=== PATIENT | female | born 1990 | race Caucasian/White ===

== ENCOUNTER 2018-11-21 08:04 | Inpatient (IN) | payer OTHER ==
[~2018-11-21] VITALS: Ht 160 cm; Wt 69.9 kg
--- OUTSIDE RECORDS SUMMARY | 2018-11-21 08:09 | XMS REPORT ---
Author Author CHANDU HAIDER Organization [employer] Address Unknown Phone Unavailable Care Team Providers Care Senior Quality Control Inspector Name Role Phone CHANDU HAIDER CP Unavailable Allergies, Adverse Reactions, Alerts Substance Reaction Event Type N.K.D.A. Info Not Available Non Drug Allergy Problems Problem Type Condition Code Onset Dates Condition Status Problem Overactive bladder 596.51 Active Assessment Exam Gynecological V72.31 Active Problem Hypertension NOS complicating , antepartum 642.93 Active Assessment TEST NEGATIVE V72.41 Active Medications Medication Code System Code Instructions Start Date End Date Status Dosage Vitamin for conception [facility] [address] Multivitamins with Folic Acid 1 mg orally once a day 1 tab(s) Procedures Procedure Coding System Code Date Beta HCG Urine test CPT-4 32109 September 29, 2014 Prev Med, estab pt, 18-39 yr CPT-4 21780 September 29, 2014 Vital Signs Date/Time: September 29, 2014 BMI 23.38 Index Weight 132 lbs Height 63 in Pain Scale 0/10 0-10 Blood Pressure Diastolic 78 mm Hg Blood Pressure Systolic 132 mm Hg Results Name Result Date Reference Range Unit Abnormality Flag BETA HCG TEST ----URINE TEST neg [id number] ----Internal QC met [id number] ----Urine color yellow [id number] Summary Purpose [employer] Submission
--- OUTSIDE RECORDS SUMMARY | 2018-11-21 08:09 | XMS REPORT | Continuity of Care Document ---
Author Organization Unknown Address Unknown Allergies There is no data. Medications There is no data. Problems There is no data. Procedures There is no data. Results There is no data. Encounters ACCT No. Visit Date/Time Discharge Status Pt. Type Provider Facility Loc./Unit Complaint [id number] 11/25/2013 16:12:22 11/29/2013 10:40:00 DIS Inpatient HAIDER, [facility] [id number] 11/23/2013 23:16:24 11/24/2013 00:30:00 [facility] [place] [id number] 11/11/2013 16:53:28 11/11/2013 23:59:00 DIS [place] [facility] [place] [id number] 09/12/2013 19:21:34 09/12/2013 23:59:00 [facility] [place]
[2018-11-21 08:15] VITALS: BP 137/92
[2018-11-21 08:26] LABS: BILIRUBIN,URINE NEGATIVE (NEGATIVE); CLARITY,URINE VERY CLOUDY; COLOR,URINE YELLOW; GLUCOSE, URINE (UA) NEGATIVE (NEGATIVE); KETONES,URINE 2+ (NEGATIVE); LEUKOCYTE ESTERASE ,URINE 3+ (NEGATIVE); NITRITE,URINE POSITIVE (NEGATIVE); PH,URINE 6 (5-9); PROTEIN,URINE 3+ (NEGATIVE); UROBILINOGEN,URINE NORMAL (NORMAL)
[2018-11-21] MEDS ORDERED: LACTATED RINGERS 1,000 ML IV ONE (08:34)
[2018-11-21 08:38] LABS: BACTERIA,URINE MODERATE /HPF; RBC,URINE 25-50 /HPF; WBC,URINE >100 /HPF
[2018-11-21] MEDS ORDERED: fentaNYL INJECTION 100 MCG/2 ML AMP IVP ONE (08:45)
[2018-11-21] MEDS ORDERED: ONDANSETRON 4 MG/2 ML (SDV) Z0FRAN IVP ONE (08:45)
[2018-11-21] MEDS ORDERED: cefTRIAXone FOR IV USE 1,000 MG in WATER (STERILE) FOR INJECTION 10 ML IV ONE (08:45)
[2018-11-21] MEDS ORDERED: IRON18TA PO (08:51)
[2018-11-21 08:52] LABS: HEMATOCRIT 34 % (35-52); HEMOGLOBIN 11.1 G/DL (11.5-16.0); MEAN CORPUSCULAR HEMOGLOBIN 19 PG (25-34); MEAN CORPUSCULAR HGB CONC 33 G/DL (32-36); MEAN CORPUSCULAR VOLUME 60 FL (80-99); PLATELET COUNT 198 10^3/uL (130-400); RED CELL DISTRIBUTION WIDTH 18.2 % (10.0-14.5); WHITE BLOOD COUNT 12.8 10^3/uL (4.3-11.0)
[2018-11-21 08:53] LABS: BASOPHILS % (AUTO) 0 % (0-10); EOSINOPHILS % (AUTO) 0 % (0-10); LYMPHOCYTES % (AUTO) 8 % (12-44); MEAN PLATELET VOLUME 10.8 FL (7.4-10.4); MONOCYTES # (AUTO) 1.2 X 10^3 (0.0-1.0); MONOCYTES % (AUTO) 10 % (0-12); NEUTROPHILS # (AUTO) 10.5 X 10^3 (1.8-7.8); NEUTROPHILS % (AUTO) 82 % (42-75)
[2018-11-21 09:02] LABS: INR 1.2 (0.8-1.4)
[2018-11-21 09:14] LABS: ALANINE AMINOTRANSFERASE 13 U/L (0-55); ALBUMIN 4.4 GM/DL (3.2-4.5); ALKALINE PHOSPHATASE 44 U/L (40-136); BILIRUBIN,TOTAL 1.2 MG/DL (0.1-1.0); BUN/CREATININE RATIO 8; CALCIUM 9.2 MG/DL (8.5-10.1); CARBON DIOXIDE 22 MMOL/L (21-32); CHLORIDE 106 MMOL/L (98-107); CREATININE SERUM 0.77 MG/DL (0.60-1.30); GFR ESTIMATED > 60; GLUCOSE 95 MG/DL (70-105); LIPASE 12 U/L (8-78); POTASSIUM 3.5 MMOL/L (3.6-5.0); SODIUM 139 MMOL/L (135-145); TOTAL PROTEIN 6.9 GM/DL (6.4-8.2)
[2018-11-21 09:32] LABS: LYMPHOCYTES % (MANUAL) 7 %; MONOCYTES % (MANUAL) 8 %; NEUTROPHILS % (MANUAL) 85 %; RBC MORPH NORMAL
--- NOTE | 2018-11-21 09:36 | Diagnostic Imaging Report ---
INDICATION: Back pain. Abdominal pain. TECHNIQUE: Single frontal view of the chest COMPARISON: None FINDINGS: The lung volumes are normal. No focal consolidation is seen. No large pleural effusion or pneumothorax is seen. The cardiomediastinal silhouette is normal in size and contour. No acute osseous abnormality is seen. IMPRESSION: No acute pulmonary abnormality seen. Dictated by: Dictated on workstation # [id number]
--- NOTE | 2018-11-21 09:36 | Diagnostic Imaging Report ---
PROCEDURE: CT urinary tract, rule out kidney stone. TECHNIQUE: Multiple contiguous axial images were obtained through the abdomen and pelvis without the use of intravenous contrast. Auto Exposure Controls were utilized during the CT exam to meet ALARA standards for radiation dose reduction. INDICATION: Abdominal pain and back pain. Initially in the lower abdomen, but now diffuse. COMPARISON: None FINDINGS: The lung bases are clear. The heart is normal in size. There is no pericardial effusion. The liver demonstrates no focal lesions. The spleen appears upper normal in size, but with no focal lesion seen. The pancreas is normal. The adrenal glands are normal. There is mild right hydronephrosis and hydroureter. No calculi are seen along the course of the ureter. There is periureteral fat stranding. The left kidney appears normal. No renal calculi are seen bilaterally. No renal calculi are seen in the urinary bladder. The bowel loops are nondistended without obstruction. The appendix is normal. There is moderate stool in the colon. There is a right 2.8 cm ovarian cyst. No significant free fluid or free air seen. No acute osseous abnormality is seen. There is grade 1 anterolisthesis at L5-S1 with bilateral L5 pars defects. IMPRESSION: 1. Mild right hydroureter with periureteral fat stranding. Nonobstructing calculi are seen. This may be due to a recently passed stone versus infection. Please correlate with urinalysis. 2. A 2.8 cm right ovarian cyst. 3. Bilateral L5 pars defects with grade 1 anterolisthesis at L5-S1. Dictated by: Dictated on workstation # [id number]
--- NOTE | 2018-11-21 09:51 | ED General ---
General Chief Complaint: Abdominal/GI Problems Stated Complaint: LOWER BACK PAIN;HIP PRESSURE;FEVER Nursing Triage Note: PT AMBULATES TO [facility] 7 WITH COMPLAINTS OF AMBDOMINAL AND BACK PAIN THAT STARTED ON MONDAY. PT STATES IT ORIGINALLY HURT ON THE LOWER RIGHT SIDE ONLY BUT HAS DIFFUSED AND STATES SHE CAN'T PINPOINT THE PAIN ON A CERTAIN SIDE AT THIS TIME. PT REPORTS SHE'S BEEN TAKING IBUPROFEN AND TYLENOL FOR THE PAIN AND HAS BEEN MANAGABLE UNTIL THIS MORNING WHICH IS WHY SHE CAME IN TODAY. Nursing Sepsis Screen: No Definite Risk Source of Information: Patient Exam Limitations: No Limitations History of Present Illness Date Seen by Provider: Nov 21, 2018 Time Seen by Provider: 08:20 Initial Comments This 28-year-old young lady presents to the emergency room with complaints of right-sided back and abdominal pain and temperature up to 102 this morning. Symptoms started with a backache about 48 hours ago. She has some nausea without vomiting. She woke early this morning feeling delirious and febrile. The pain was very intense until she took ibuprofen 800 mg at 05:00. She denies any constipation, diarrhea, vomiting, vaginal symptoms, or respiratory symptoms. She does have urinary frequency and does not feel like she completely empties her bladder when she urinates. Her primary care provider is Dr. Albright in [place], [place]. She does not have a local primary care provider as she will be moving to [place] in a few weeks. Her last menstrual period was 3 weeks ago and her had a vasectomy. Patient is noted to be significantly tachyc ardic with a heart rate in the 130s. Allergies and Home Medications Allergies Coded Allergies: No Known Drug Allergies (Unverified , 11/21/18) Patient Home Medication List Home Medication List Reviewed: Yes Review of Systems Review of Systems Constitutional: see HPI EENTM: no symptoms reported Respiratory: no symptoms reported Cardiovascular: see HPI Gastrointestinal: see HPI Genitourinary: see HPI : No Expected Date of Delivery: Oct 31, 2018 Musculoskeletal: no symptoms reported Skin: no symptoms reported Psychiatric/Neurological: No Symptoms Reported Hematologic/Lymphatic: No Symptoms Reported Immunological/Allergic: no symptoms reported Past Lspueix-Oqsiwv-Gcmxsv Hx Past Med/Social Hx: Reviewed and Corrections made Patient Social History Alcohol Use: Denies Use Recreational Drug Use: No Smoking Status: Never a Smoker 2nd Hand Smoke Exposure: No Recent Foreign Travel: No Contact w/Someone Who Travel: No Recent Infectious Disease Expo: No Recent Hopitalizations: No Seasonal Allergies Seasonal Allergies: No Past Medical History Surgeries: Yes Orthopedic Respiratory: No Cardiac: No Neurological: No : No Genitourinary: No Gastrointestinal: No Musculoskeletal: No Endocrine: No HEENT: No Cancer: No Psychosocial: Yes Depression () Integumentary: No Blood Disorders: No Physical Exam-Suspected Sepsis Physical Exam Vital Signs Vital Signs - First Documented 11/21/18 08:10 Temp 99.0 Pulse 135 Resp 18 B/P (MAP) 137/92 (107) Pulse Ox 99 O2 Delivery Room Air Capillary Refill : Less Than 3 Seconds Blood Pressure Mean: 107 Height, Weight, BMI Height: 5'3.00" Weight: 150lbs. oz. 68.303157ea; BMI Method:Stated General Appearance: No Apparent Distress, WD/WN HEENT: PERRL/EOMI, Normal ENT Inspection, Other (oropharynx somewhat dry) Neck: Normal Inspection Respiratory: Lungs Clear, Normal Breath Sounds, No Accessory Muscle Use, No Respiratory Distress Cardiovascular: No Edema, No Murmur, Tachycardia Gastrointestinal: Normal Bowel Sounds, Soft; No Distended; Tenderness (throughout the right abdomen) Back: No CVA Tenderness (L); CVA Tenderness (R) Extremity: Normal Capillary Refill, Normal Inspection, No Pedal Edema Neurologic/Psychiatric: Alert, Oriented x3, No Motor/Sensory Deficits, Normal Mood/Affect, event marketing coordinator II-XII Norm as Tested Skin: normal color, warm/dry Focused Exam Lactate Level 11/21/18 08:36: Lactic Acid Level 0.84 Lactic Acid Level Laboratory Tests Test 11/21/18 08:36 Lactic Acid Level 0.84 MMOL/L (0.50-2.00) Progress/Results/Core Measures Suspected Sepsis Recent Fever Within 48 Hours: Yes Infection Criteria Present: Suspected New Infection New/Unexplained Altered Menta: No Sepsis Screen: No Definite Risk SIRS Temperature:99.0 Pulse: 135 Respiratory Rate: 18 Laboratory Tests 11/21/18 08:36: White Blood Count 12.8H Blood Pressure 137 /92 Mean: 107 11/21/18 08:36: Lactic Acid Level 0.84 Laboratory Tests 11/21/18 08:36: Creatinine 0.77, INR Comment 1.2, Platelet Count 198, Total Bilirubin 1.2H Results/Orders Lab Results Laboratory Tests Test 11/21/18 08:12 11/21/18 08:36 Range/Units Urine Color YELLOW Urine Clarity VERY CLOUDY H Urine pH 6 5-9 Urine Specific [place] 1.015 L 1.016-1.022 Urine Protein 3+ H NEGATIVE Urine Glucose (UA) NEGATIVE NEGATIVE Urine Ketones 2+ H NEGATIVE Urine Nitrite POSITIVE H NEGATIVE Urine Bilirubin NEGATIVE NEGATIVE Urine Urobilinogen NORMAL NORMAL MG/DL Urine Leukocyte Esterase 3+ H NEGATIVE Urine RBC (Auto) 5+ H NEGATIVE Urine RBC 25-50 H /HPF Urine WBC >100 H /HPF Urine Crystals NONE /LPF Urine Bacteria MODERATE H /HPF Urine Casts NONE /LPF Urine Mucus NEGATIVE /LPF Urine Culture Indicated YES White Blood Count 12.8 H 4.3-11.0 10^3/uL Red Blood Count 5.71 4.35-5.85 10^6/uL Hemoglobin 11.1 L 11.5-16.0 G/DL Hematocrit 34 L 35-52 % Mean Corpuscular Volume 60 L 80-99 FL Mean Corpuscular Hemoglobin 19 L 25-34 PG Mean Corpuscular Hemoglobin Concent 33 32-36 G/DL Red Cell Distribution Width 18.2 H 10.0-14.5 % Platelet Count 198 130-400 10^3/uL Mean Platelet Volume 10.8 H 7.4-10.4 FL Neutrophils (%) (Auto) 82 H 42-75 % Lymphocytes (%) (Auto) 8 L 12-44 % Monocytes (%) (Auto) 10 0-12 % Eosinophils (%) (Auto) 0 0-10 % Basophils (%) (Auto) 0 0-10 % Neutrophils # (Auto) 10.5 H 1.8-7.8 X 10^3 Lymphocytes # (Auto) 1.0 1.0-4.0 X 10^3 Monocytes # (Auto) 1.2 H 0.0-1.0 X 10^3 Eosinophils # (Auto) 0.0 0.0-0.3 10^3/uL Basophils # (Auto) 0.0 0.0-0.1 10^3/uL Neutrophils % (Manual) 85 % Lymphocytes % (Manual) 7 % Monocytes % (Manual) 8 % Blood Morphology Comment NORMAL Prothrombin Time 16.0 H 12.2-14.7 SEC INR Comment 1.2 0.8-1.4 Activated Partial Thromboplast Time 38 H 24-35 SEC Sodium Level 139 135-145 MMOL/L Potassium Level 3.5 L 3.6-5.0 MMOL/L Chloride Level 106 98-107 MMOL/L Carbon Dioxide Level 22 21-32 MMOL/L Anion Gap 11 5-14 MMOL/L Blood Urea Nitrogen 6 L 7-18 MG/DL Creatinine 0.77 0.60-1.30 MG/DL Estimat Glomerular Filtration Rate > 60 BUN/Creatinine Ratio 8 Glucose Level 95 70-105 MG/DL Lactic Acid Level 0.84 0.50-2.00 MMOL/L Calcium Level 9.2 8.5-10.1 MG/DL Corrected Calcium 8.9 8.5-10.1 MG/DL Total Bilirubin 1.2 H 0.1-1.0 MG/DL Aspartate Amino Transf (AST/SGOT) 17 5-34 U/L Alanine Aminotransferase (ALT/SGPT) 13 0-55 U/L Alkaline Phosphatase 44 40-136 U/L Total Protein 6.9 6.4-8.2 GM/DL Albumin 4.4 3.2-4.5 GM/DL Lipase 12 8-78 U/L Serum Test, Qualitative NEGATIVE NEGATIVE My Orders Orders - ROXANNE BYRD MD Ua Culture If Indicated (11/21/18 08:20) Cbc With Automated Diff (11/21/18 08:34) Comprehensive Metabolic Panel (11/21/18 08:34) Blood Culture (11/21/18 08:34) Sputum Culture (11/21/18 08:34) Protime With Inr (11/21/18 08:34) Partial Thromboplastin Time (11/21/18 08:34) Chest 1 View, Ap/Pa Only (11/21/18 08:34) Ed Iv/Invasive Line Start (11/21/18 08:34) Ed Iv/Invasive Line Start (11/21/18 08:34) Vital Signs Adult Sepsis Patie Q15M (11/21/18 08:34) O2 (11/21/18 08:34) Remove Rings In Anticipation O (11/21/18 08:34) Lactic Acid Analyzer (11/21/18 08:34) Lactated Ringers (Lr 1000 Ml Iv Solution (11/21/18 08:34) Ondansetron Injection (Zofran Injectio (11/21/18 08:45) Fentanyl Injection (Sublimaze Injection (11/21/18 08:45) Hcg,Qualitative Serum (11/21/18 08:34) Lipase (11/21/18 08:34) Urine Culture (11/21/18 08:12) Ceftriaxone For Iv Use (Rocephin For I (11/21/18 08:45) Ct Abd/Pelvis Wo(Kidney Stone) (11/21/18 08:42) Manual Differential (11/21/18 08:36) Hydrocodone/Apap 5/325 Tablet (Lortab 5 (11/21/18 10:15) Medications Given in ED Current Medications Medications Dose Ordered Sig/Aubrey Route Start Time Stop Time Status Last Admin Dose Admin Acetaminophen/ Hydrocodone Bitart 2 tab ONCE ONCE PO 11/21/18 10:15 11/21/18 10:16 11/21/18 10:07 2 TAB Ceftriaxone Sodium 1000 mg/ Sterile Water 10 ml @ 200 mls/hr ONCE ONCE IV 11/21/18 08:45 11/21/18 08:47 DC 11/21/18 09:04 200 MLS/HR Fentanyl Citrate 75 mcg ONCE ONCE IVP 11/21/18 08:45 11/21/18 08:46 DC 11/21/18 09:04 75 MCG Lactated Ringer's 1,000 ml @ 0 mls/hr Q0M ONCE IV 11/21/18 08:34 11/21/18 08:37 DC 11/21/18 09:03 1,000 MLS/HR Ondansetron HCl 8 mg ONCE ONCE IVP 11/21/18 08:45 11/21/18 08:46 DC 11/21/18 09:04 8 MG Vital Signs/I&O 11/21/18 11/21/18 11/21/18 08:10 08:15 08:15 Temp 99.0 99.0 99.0 Pulse 135 135 135 Resp 18 18 18 B/P (MAP) 137/92 (107) 137/92 (107) 137/92 Pulse Ox 99 99 99 O2 Delivery Room Air Room Air Capillary Refill : Less Than 3 Seconds Blood Pressure Mean: 107 Progress Note : Time: 09:57 Progress Note Patient was found to meet septic criteria from urinary tract infection. There was blood found on urinalysis. CT was therefore ordered to rule out obstructing ureteral stone. No ureteral stone was found but there was evidence of hydroureter on the right which may represent infection and/or recently passed stone. Symptoms are consistent with pyelonephritis. Antibiotic therapy was sta rted with Rocephin after blood cultures and lactic acid were drawn. A liter of LR was administered in the emergency room. Pain was treated with fentanyl followed by hydrocodone. Zofran was given for nausea. Case was discussed with Dr. Stark and excepts admission. Diagnostic Imaging Diagonstic Imaging: CT Plain Films/CT/US/NM/MRI: abdomen, pelvis Comments CT abdomen and pelvis viewed by me and report reviewed. See report below: NAME: JAQUI TRIANA [facility] REC#: [id number] PT STATUS: REG ER : 1990 PHYSICIAN: ROXANNE BYRD MD ADMIT DATE: 11/21/18/ER Draft Date of Exam:11/21/18 CT ABD/PELVIS WO(KIDNEY STONE) PROCEDURE: CT urinary tract, rule out kidney stone. TECHNIQUE: Multiple contiguous axial images were obtained through the abdomen and pelvis without the use of intravenous contrast. Auto Exposure Controls were utilized during the CT exam to meet ALARA standards for radiation dose reduction. INDICATION: Abdominal pain and back pain. Initially in the lower abdomen, but now diffuse. COMPARISON: None FINDINGS: The lung bases are clear. The heart is normal in size. There is no pericardial effusion. The liver demonstrates no focal lesions. The spleen appears upper normal in size, but with no focal lesion seen. The pancreas is normal. The adrenal glands are normal. There is mild right hydronephrosis and hydroureter. No calculi are seen along the course of the ureter. There is periureteral fat stranding. The left kidney appears normal. No renal calculi are seen bilaterally. No renal calculi are seen in the urinary bladder. The bowel loops are nondistended without obstruction. The appendix is normal. There is moderate stool in the colon. There is a right 2.8 cm ovarian cyst. No significant free fluid or free air seen. No acute osseous abnormality is seen. There is grade 1 anterolisthesis at L5-S1 with bilateral L5 pars defects. IMPRESSION: 1. Mild right hydroureter with periureteral fat stranding. Nonobstructing calculi are seen. This may be due to a recently passed stone versus infection. Please correlate with urinalysis. 2. A 2.8 cm right ovarian cyst. 3. Bilateral L5 pars defects with grade 1 anterolisthesis at L5-S1. Dictated on workstation # [id number] Dict: 11/21/1825 Trans: 11/21/18 0936 [facility] [id number] Interpreted by: RITA PORTILLO MD Departure Communication (Admissions) Time/Spoke to Admitting Phy: 09:45 Dr. Stark Impression Primary Impression: Sepsis Qualified Codes: A41.9 - Sepsis, unspecified organism Additional Impressions: Pyelonephritis Right sided abdominal pain Disposition: ADMITTED INPATIENT Condition: Improved Admissions Decision to Admit Reason: Admit from ER (General) Decision to Admit/Date: Nov 21, 2018 Time/Decision to Admit Time: 08:30 Departure-Patient Inst. Referrals: NO,LOCAL PHYSICIAN (PCP) Primary Care Physician ROXANNE BYRD MD Nov 21, 2018 09:51
[2018-11-21] MEDS ORDERED: HYDROcodone/APAP 5 MG/325 MG (LORTAB) TAB PO ONE (10:15)
[2018-11-21 10:58] VITALS: BP 130/78
[2018-11-21] MEDS ORDERED: IBUPROFEN 600 MG (MOTRIN) TAB PO PRN (11:00)
[2018-11-21] MEDS: cefTRIAXone 1,000 MG/SWFI 10 ML IV PUSH IV SCH ×2 (11:16)
[2018-11-21] MEDS: NS IV 1000 ML 1,000 ML IV SCH ×3 (11:25→23:24)
--- OUTSIDE RECORDS SUMMARY | 2018-11-21 11:51 | XMS REPORT | Continuity of Care Document ---
Author Organization Unknown Address Unknown Allergies There is no data. Medications There is no data. Problems There is no data. Procedures There is no data. Results There is no data. Encounters ACCT No. Visit Date/Time Discharge Status Pt. Type Provider Facility Loc./Unit Complaint [id number] 11/25/2013 16:12:22 11/29/2013 10:40:00 DIS Inpatient HAIDER, [facility] [place] [id number] 11/23/2013 23:16:24 11/24/2013 00:30:00 [facility] [place] [id number] 11/11/2013 16:53:28 11/11/2013 23:59:00 [place] [facility] [place] [id number] 09/12/2013 19:21:34 09/12/2013 23:59:00 [facility] [place]
[2018-11-21 12:00] VITALS: BP 127/77
--- NOTE | 2018-11-21 12:32 | History & Physical-Hospitalist ---
History of Present Illness HPI/Chief Complaint Pt is a 28yoCF who presented to the ER due to right sided back pain and fever. She states the symptoms started on 11/19 and continued to worsen, spreading from her back to her abdomen. She awoke this morning around 3am due to the pain and took 800mh ibuprofen and tried to push fluids because she thought she had a kidney stone. Despite this her pain worsened and she remained febrile prompting her to seek evaluation in the ER where she was found to have a UTI and meet sepsis criteria. She was admitted for IV abx. She states she still has pain but is going to eat and otherwise has no complaints. Source: patient Date Seen 11/21/18 Time Seen by a Provider: 12:30 Attending Physician Adrianne Stark MD PCP No,Local Physician Referring Physician Date of Admission Nov 21, 2018 at 10:18 am Home Medications & Allergies Home Medications Reviewed patient Home Medication Reconciliation performed by pharmacy medication reconciliations water supply technician and/or nursing. Patients Allergies have been reviewed. Allergies Allergies Coded Allergies No Known Drug Allergies (Unverified11/21/18) Past Veyynra-Wglhju-Vlrqlv Hx Past Med/Social Hx: Reviewed and Corrections made Patient Social History Marrital Status: Number of living children: 3 Employed/Student: unemployed Alcohol Use: Rarely Uses Recreational Drug Use: No Smoking Status: Never a Smoker 2nd Hand Smoke Exposure: No Recent Foreign Travel: No Contact w/other who traveled: No Recent Hopitalizations: No Recent Infectious Disease Expo: No Seasonal Allergies Seasonal Allergies: No Past Medical History Surgeries: Orthopedic (knee) : No Expected Date of Delivery: Oct 31, 2018 Psychosocial: Depression () History of Blood Disorders: No Family History Reviewed Nursing Family Hx Cancer Review of Systems Constitutional: fever EENTM: no symptoms reported Respiratory: no symptoms reported Cardiovascular: no symptoms reported Gastrointestinal: abdominal pain; No constipation, No diarrhea, No nausea, No vomiting Genitourinary: decreased output; No dysuria; frequency; No hematuria Musculoskeletal: back pain Skin: no symptoms reported Psychiatric/Neurological: No Symptoms Reported Physical Exam Physical Exam Vital Signs Vital Signs - First Documented 11/21/18 08:10 Temp 99.0 Pulse 135 Resp 18 B/P (MAP) 137/92 (107) Pulse Ox 99 O2 Delivery Room Air Capillary Refill : Less Than 3 Seconds Height, Weight, BMI Height: 5'3.00" Weight: 154lbs. 0.0oz. 69.432508re; 27.3 BMI Method:Stated General Appearance: No Apparent Distress, WD/WN HEENT: Normal ENT Inspection, Moist Mucous Membranes; No Scleral Icterus (L), No Scleral Icterus (R) Neck: Normal Inspection, Supple; No Thyromegaly Respiratory: Lungs Clear, No Accessory Muscle Use, No Respiratory Distress Cardiovascular: Regular Rate, Rhythm, No JVD, No Murmur Gastrointestinal: Normal Bowel Sounds, Non Tender, Soft Back: CVA Tenderness (R) Extremity: Normal Capillary Refill, Normal Inspection, No Pedal Edema Neurologic/Psychiatric: Alert, Oriented x3, No Motor/Sensory Deficits, Normal Mood/Affect; No Aphasia, No Facial Droop Skin: Normal Color, Warm/Dry; No [place]ia Results Results/Procedures Labs Laboratory Tests 11/21/18 08:36 Patient resulted labs reviewed. Imaging: Reviewed Imaging Report Assessment/Plan Admission Diagnosis Sepsis from pyelonephritis Admission Status: Inpatient Order (span 2 midnights) Reason for Inpatient Admission: iv abx Diagnosis/Problems Diagnosis/Problems (1) Sepsis Status: Acute Assessment & Plan: febrile with leukocytosis and tachycardia UA consistent with infection No lactic or end organ involvement- not severe Continue Rocephin as started in the ER Await cultures Qualifiers: Sepsis type: sepsis due to unspecified organism Qualified Codes: A41.9 - Sepsis, unspecified organism (2) Pyelonephritis Status: Acute Assessment & Plan: Continue abx as above possibly passed stone (3) depression Assessment & Plan: Resume home Zoloft Clinical Quality Measures DVT/VTE Risk/Contraindication: RFS Level Per Nursing on Admit: 0=No Risk/No VTE PPX ADRIANNE STARK MD Nov 21, 2018 12:32 pm
[2018-11-21] MEDS: ONDANSETRON 4 MG/2 ML (SDV) Z0FRAN IV PRN ×2 (12:37→19:48)
[2018-11-21] MEDS: HYDROcodone/APAP 5 MG/325 MG (LORTAB) TAB PO PRN ×4 (12:38→23:24)
[2018-11-21] MEDS ORDERED: fentaNYL INJECTION 100 MCG/2 ML AMP IVP PRN (12:45)
[2018-11-21] MEDS ORDERED: SERT50TA2 PO (13:13)
[2018-11-21] MEDS ORDERED: FERR325T18 PO (13:13)
[2018-11-21] MEDS ORDERED: IBUP-2055 PO (13:17)
--- NOTE | 2018-11-21 13:18 | NUR ---
SPOKE WITH PATIENT BUT THERE WAS NO EXTERNAL MED HISTORY AND WAS ABLE TO COMPLETE THE MED REC. ZOLOFT 50 MG -1 QHS PATIENT STATES SHE IS CURRENTLY ON THIS MEDICATION (BUT SAYS SHE HAS NOT TAKEN IT REGULARLY) AND CANNOT REMEMBER THE LAST TIME IT HAS BEEN FILLED OR WHERE IT WAS FILLED. PT STATES SHE HAS MOVED AROUND AND COULDN'T REMEMBER THE TOWN SHE PICKED IT UP FROM. DUE TO THIS I AM UNABLE TO VERIFY A DATE LAST FILLED. OTC MEDICATIONS: FERROUS SULFATE 325MG- 1 QHS
[2018-11-21 16:55] VITALS: BP 121/73
[2018-11-21 20:00] VITALS: BP 123/79
[2018-11-21] MEDS: SERTRALINE 50 MG (ZOLOFT) TABLET PO SCH (21:09)
[2018-11-21 23:53] VITALS: BP 130/77
[2018-11-22 04:56] VITALS: BP 104/60
[2018-11-22] MEDS: ONDANSETRON 4 MG/2 ML (SDV) Z0FRAN IV PRN ×4 (05:09→17:29)
[2018-11-22] MEDS: NS IV 1000 ML 1,000 ML IV SCH ×2 (05:11→15:11)
[2018-11-22] MEDS: HYDROcodone/APAP 5 MG/325 MG (LORTAB) TAB PO PRN ×5 (05:12→20:49)
--- NOTE | 2018-11-22 05:18 | NUR ---
THIS RN ANSWERED PT CALL LIGHT. POLICE RESERVES COMMANDER STATED "PT PASSED OUT WHILE DRAWING BLOOD. PT OBSERVED BY THIS RN TO BE ACTIVELY VOMITING CLEAR LIGHT GREEN BILE. IV ZOFRAN GIVEN. COOL WASH RAG PLACED ON PT NECK. PT LAYING SUPINE IN BED. AFTER 5 MINUTES PT STATED "I FEEL BETTER". PT INFORMED THIS RN THAT PATIENT DOES NOT DO WELL WITH THE SIGHT OF BLOOD. THIS RN WILL CONTINUE TO MONITOR PATIENT.
[2018-11-22 05:57] LABS: BASOPHILS % (AUTO) 0 % (0-10); EOSINOPHILS % (AUTO) 0 % (0-10); HEMATOCRIT 30 % (35-52); HEMOGLOBIN 9.8 G/DL (11.5-16.0); LYMPHOCYTES # (AUTO) 1.9 X 10^3 (1.0-4.0); LYMPHOCYTES % (AUTO) 15 % (12-44); MEAN CORPUSCULAR HEMOGLOBIN 19 PG (25-34); MEAN CORPUSCULAR HGB CONC 32 G/DL (32-36); MEAN CORPUSCULAR VOLUME 60 FL (80-99); MEAN PLATELET VOLUME 10.8 FL (7.4-10.4); MONOCYTES # (AUTO) 1.9 X 10^3 (0.0-1.0); MONOCYTES % (AUTO) 15 % (0-12); NEUTROPHILS # (AUTO) 8.6 X 10^3 (1.8-7.8); NEUTROPHILS % (AUTO) 69 % (42-75); PLATELET COUNT 206 10^3/uL (130-400); RED CELL DISTRIBUTION WIDTH 17.7 % (10.0-14.5); WHITE BLOOD COUNT 12.4 10^3/uL (4.3-11.0)
[2018-11-22 06:23] LABS: BUN/CREATININE RATIO 7; CALCIUM 8.4 MG/DL (8.5-10.1); CARBON DIOXIDE 22 MMOL/L (21-32); CHLORIDE 108 MMOL/L (98-107); CREATININE SERUM 0.67 MG/DL (0.60-1.30); GFR ESTIMATED > 60; GLUCOSE 112 MG/DL (70-105); POTASSIUM 3.8 MMOL/L (3.6-5.0); SODIUM 138 MMOL/L (135-145)
--- NOTE | 2018-11-22 07:51 | Progress Note-Hospitalist ---
Subjective HPI/CC On Admission Date Seen by Provider: Nov 22, 2018 Time Seen by Provider: 07:46 Pt is a 28yoCF who presented to the ER due to right sided back pain and fever. She states the symptoms started on 11/19 and continued to worsen, spreading from her back to her abdomen. She awoke this morning around 3am due to the pain and t ook 800mh ibuprofen and tried to push fluids because she thought she had a kidney stone. Despite this her pain worsened and she remained febrile prompting her to seek evaluation in the ER where she was found to have a UTI and meet sepsis criteria. She was admitted for IV abx. She states she still has pain but is going to eat and otherwise has no complaints. Subjective/Events-last exam Pt reports feeling better today but had worsenign pain last night until 9pm. Otherwise had a good night. Getting nauseated with pain medications. Focused Exam Lactate Level 11/21/18 08:36: Lactic Acid Level 0.84 Objective Exam Vital Signs Vital Signs Date Time Temp Pulse Resp B/P (MAP) Pulse Ox O2 Delivery O2 Flow Rate FiO2 11/22/18 04:56 98.0 104 20 104/60 (75) 100 Room Air Capillary Refill : Less Than 3 Seconds General Appearance: No Apparent Distress, WD/WN HEENT: No Scleral Icterus (L), No Scleral Icterus (R) Neck: No Thyromegaly Respiratory: Lungs Clear, No Accessory Muscle Use, No Respiratory Distress Cardiovascular: Regular Rate, Rhythm, No JVD, No Murmur Gastrointestinal: Normal Bowel Sounds, Non Tender, Soft Extremity: No Calf Tenderness, No Pedal Edema Neurologic/Psychiatric: Alert, Oriented x3, Normal Mood/Affect; No Aphasia, No Facial Droop Skin: Normal Color, Warm/Dry; No Petechia Results/Procedures Lab Laboratory Tests 11/21/18 08:36 11/22/18 05:00 Patient resulted labs reviewed. Imaging: Reviewed Imaging Report Assessment/Plan Assessment and Plan Assess & Plan/Chief Complaint Sepsis- pyelonephritis Diagnosis/Problems Diagnosis/Problems (1) Sepsis Status: Acute Assessment & Plan: Defervesced last night Continue Rocephin Await cultures Qualifiers: Sepsis type: sepsis due to unspecified organism Qualified Codes: A41.9 - Sepsis, unspecified organism (2) Pyelonephritis Status: Acute Assessment & Plan: Continue abx as above possibly passed stone (3) Microcytic anemia Assessment & Plan: chronic, reports on iron at home Check iron levels Will resume once blood cultures negative consider IV iron prior to DC (4) depression Assessment & Plan: Cont home Zoloft Clinical Quality Measures DVT/VTE Risk/Contraindication: RFS Level Per Nursing on Admit: 0=No Risk/No VTE PPX ADRIANNE AVILEZ MD Nov 22, 2018 07:51
[2018-11-22 08:00] VITALS: BP 114/70
[2018-11-22] MEDS: cefTRIAXone 1,000 MG/SWFI 10 ML IV PUSH IV SCH ×2 (10:35)
[2018-11-22 12:00] VITALS: BP 117/78
[2018-11-22 16:59] VITALS: BP 128/71
[2018-11-22 19:37] VITALS: BP 121/58
[2018-11-22] MEDS: SERTRALINE 50 MG (ZOLOFT) TABLET PO SCH (20:16)
[2018-11-23] VITALS: BP 126/77
[2018-11-23] MEDS: NS IV 1000 ML 1,000 ML IV SCH ×2 (00:14→10:32)
[2018-11-23 03:49] VITALS: BP 122/77
[2018-11-23 05:13] LABS: BASOPHILS % (AUTO) 0 % (0-10); EOSINOPHILS # (AUTO) 0.1 10^3/uL (0.0-0.3); EOSINOPHILS % (AUTO) 1 % (0-10); HEMATOCRIT 28 % (35-52); HEMOGLOBIN 8.9 G/DL (11.5-16.0); LYMPHOCYTES % (AUTO) 24 % (12-44); MEAN CORPUSCULAR HEMOGLOBIN 19 PG (25-34); MEAN CORPUSCULAR HGB CONC 32 G/DL (32-36); MEAN CORPUSCULAR VOLUME 61 FL (80-99); MEAN PLATELET VOLUME 10.4 FL (7.4-10.4); MONOCYTES # (AUTO) 1.3 X 10^3 (0.0-1.0); MONOCYTES % (AUTO) 15 % (0-12); NEUTROPHILS # (AUTO) 4.9 X 10^3 (1.8-7.8); NEUTROPHILS % (AUTO) 60 % (42-75); PLATELET COUNT 165 10^3/uL (130-400); RED CELL DISTRIBUTION WIDTH 17.1 % (10.0-14.5); WHITE BLOOD COUNT 8.3 10^3/uL (4.3-11.0)
[2018-11-23 05:38] LABS: BUN/CREATININE RATIO 6; CALCIUM 8.3 MG/DL (8.5-10.1); CARBON DIOXIDE 22 MMOL/L (21-32); CHLORIDE 110 MMOL/L (98-107); CREATININE SERUM 0.65 MG/DL (0.60-1.30); GFR ESTIMATED > 60; GLUCOSE 89 MG/DL (70-105); POTASSIUM 3.7 MMOL/L (3.6-5.0); SODIUM 140 MMOL/L (135-145)
[2018-11-23 08:21] VITALS: BP 133/83
[2018-11-23] MEDS: HYDROcodone/APAP 5 MG/325 MG (LORTAB) TAB PO PRN ×3 (09:34→15:56)
[2018-11-23] MEDS: cefTRIAXone 1,000 MG/SWFI 10 ML IV PUSH IV SCH ×2 (11:26)
[2018-11-23] MEDS ORDERED: SERT50TA2 PO (11:36)
[2018-11-23 12:25] VITALS: BP 124/73
--- NOTE | 2018-11-23 12:25 | Discharge Summary-Hospitalist ---
Diagnosis/Chief Complaint Date of Admission Nov 21, 2018 at 10:18 am Date of Discharge Admission Diagnosis Sepsis from pyelonephritis Discharge Diagnosis (1) Sepsis Status: Acute Assessment & Plan: Defervesced last night Continue Rocephin Await cultures (2) Pyelonephritis Status: Acute Assessment & Plan: Continue abx as above possibly passed stone (3) Microcytic anemia Assessment & Plan: chronic, reports on iron at home Check iron levels Will resume once blood cultures negative consider IV iron prior to DC (4) depression Assessment & Plan: Cont home Zoloft Discharge Summary Discharge Physical Exam Allergies: Coded Allergies: No Known Drug Allergies (Unverified , 11/21/18) Vitals & I&Os Vital Signs Date Time Temp Pulse Resp B/P (MAP) Pulse Ox O2 Delivery O2 Flow Rate FiO2 11/23/18 10:05 98.6 11/23/18 08:21 102 21 133/83 (100) 99 Room Air 0.00 Hospital Course Labs (last 24 hrs) Laboratory Tests 11/23/18 04:34: Sodium Level 140, Potassium Level 3.7, Chloride Level 110H, Carbon Dioxide Level 22, Anion Gap 8, Blood Urea Nitrogen 4L, Creatinine 0.65, Estimat Glomerular Filtration Rate > 60, BUN/Creatinine Ratio 6, Glucose Level 89, Calcium Level 8.3L 11/23/18 04:39: White Blood Count 8.3, Red Blood Count 4.61, Hemoglobin 8.9L, Hematocrit 28L, Mean Corpuscular Volume 61L, Mean Corpuscular Hemoglobin 19L, Mean Corpuscular Hemoglobin Concent 32, Red Cell Distribution Width 17.1H, Platelet Count 165, Mean Platelet Volume 10.4, Neutrophils (%) (Auto) 60, Lymphocytes (%) (Auto) 24, Monocytes (%) (Auto) 15H, Eosinophils (%) (Auto) 1, Basophils (%) (Auto) 0, Neutrophils # (Auto) 4.9, Lymphocytes # (Auto) 2.0, Monocytes # (Auto) 1.3H, Eosinophils # (Auto) 0.1, Basophils # (Auto) 0.0 Microbiology 11/21/18 Blood Culture - Preliminary, Resulted No growth 11/21/18 Urine Culture - Final, Complete Escherichia coli Patient resulted labs reviewed. Pending Labs Laboratory Tests 11/23/18 04:34: Sodium Level 140, Potassium Level 3.7, Chloride Level 110, Carbon Dioxide Level 22, Anion Gap 8, Blood Urea Nitrogen 4, Creatinine 0.65, Estimat Glomerular Fi ltration Rate > 60, BUN/Creatinine Ratio 6, Glucose Level 89, Calcium Level 8.3 11/23/18 04:39: White Blood Count 8.3, Red Blood Count 4.61, Hemoglobin 8.9, Hematocrit 28, Mean Corpuscular Volume 61, Mean Corpuscular Hemoglobin 19, Mean Corpuscular Hemoglobin Concent 32, Red Cell Distribution Width 17.1, Platelet Count 165, Mean Platelet Volume 10.4, Neutrophils (%) (Auto) 60, Lymphocytes (%) (Auto) 24, Monocytes (%) (Auto) 15, Eosinophils (%) (Auto) 1, Basophils (%) (Auto) 0, Neutrophils # (Auto) 4.9, Lymphocytes # (Auto) 2.0, Monocytes # (Auto) 1.3, Eosinophils # (Auto) 0.1, Basophils # (Auto) 0.0 Imaging: Reviewed Imaging Report Discharge Home Medications: Active Scripts Active Zoloft (Sertraline HCl) 50 Mg Tablet 50 Mg PO HS Reported Ibuprofen 200 Mg Tablet 800 Mg PO Q8H PRN Ferrous Sulfate 325 Mg Tablet 325 Mg PO HS Instructions to patient/family Please see electronic discharge instructions given to patient. Clinical Quality Measures DVT/VTE Risk/Contraindication: RFS Level Per Nursing on Admit: 0=No Risk/No VTE PPX Problem Qualifiers (1) Sepsis: Sepsis type: sepsis due to unspecified organism Qualified Codes: A41.9 - Sepsis, unspecified organism ADRIANNE AVILEZ MD Nov 23, 2018 12:25 pm
[2018-11-23] MEDS: ONDANSETRON 4 MG/2 ML (SDV) Z0FRAN IV PRN ×2 (12:34→16:09)
[2018-11-23] MEDS ORDERED: SENNA W/DOCUSATE (SENOKOT S) TABLET PO SCH (13:15)
[2018-11-23 15:35] VITALS: BP 110/69
[2018-11-23] MEDS ORDERED: ACHD5005 PO (15:58)
[2018-11-23] MEDS ORDERED: ONDA4TAB11 PO (15:58)
[2018-11-23] MEDS ORDERED: CEFD300C3 PO (15:58)
--- NOTE | 2018-11-23 16:02 | Discharge Inst-Simple/Standard ---
Discharge Inst-Standard Discharge Medications New, Converted or Re-Newed RX: Transmitted to Pharmacy Patient Instructions/Follow Up Plan of Care/Instructions/FU: Please continue to take your medications as written. Please follow up with your PCP in the next week. Activity as Tolerated: Yes Discharge Diet: No Restrictions Return to The Hospital For: Fever, worsening pain, confusion, if you feel you are getting worse. ADRIANNE AVILEZ MD Nov 23, 2018 4:02 pm
[2018-11-23 17:37] VITALS: BP 110/69
== END 2018-11-23 17:39 | disposition home or self-care (01) | DRG 872 ==
LOC: ER 08:06 → 4TH 10:18
PROVIDERS: ADMIT Family Medicine; ATTEND Family Medicine
DX: A41.9 Sepsis, unspecified organism (principal); N10 Acute pyelonephritis; D50.9 Iron deficiency anemia, unspecified; F53.0 Postpartum depression
CPT/HCPCS: 36415; 71045; 74176; 80048; 80053; 81000; 82728; 83540; 83605; 83690; 84703; 85007; 85025; 85027; 85610; 85730; 87040; 87077; 87088; 87186